=== PATIENT | female | born 1995 | race Hispanic/Latino ===

== ENCOUNTER 2018-09-10 09:10 | Observation (INO) | payer MEDICAID ==
[~2018-09-10 09:10] MED LIST: PNV91TAB3 PO
== END 2018-09-10 10:29 | disposition home or self-care (01) ==
LOC: EDH 09:10 → LDH 09:11
PROVIDERS: ADMIT Obstetrics & Gynecology; ATTEND Obstetrics & Gynecology
DX: O26.853 Spotting complicating pregnancy, third trimester (principal); O26.893 Other specified pregnancy related conditions, third trimester; R10.2 Pelvic and perineal pain; Z3A.38 38 weeks gestation of pregnancy
CPT/HCPCS: 99284; G0378

== ENCOUNTER 2022-08-22 16:37 | Emergency (ER) | payer MEDICAID ==
[~2022-08-22] VITALS: Ht 152.4 cm; Wt 95.3 kg
[2022-08-22 16:54] VITALS: BP 137/84
[2022-08-22] MEDS ORDERED: AMOX/CLAV 875/125MG TAB PO SCH (17:30)
[2022-08-22] MEDS ORDERED: AMOX1TAB16 PO (17:59)
[2022-08-22] MEDS ORDERED: MUPI22OI2 TP (18:00)
[2022-08-22] MEDS ORDERED: MUPIROCIN OINTMENT 22 GM TUBE TP SCH (21:00)
== END 2022-08-22 18:07 | disposition home or self-care (01) ==
LOC: EDH 16:37
DX: L08.9 Local infection of the skin and subcutaneous tissue, unspecified (principal); Z79.899 Other long term (current) drug therapy